=== PATIENT | female | born 2000 | race Caucasian/White ===

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

== ENCOUNTER 2020-09-18 15:00 | Outpatient (RCR) | payer BC | END 2020-10-01 | disposition home or self-care (01) | LOC: WSC | DX: M54.9 Dorsalgia, unspecified (principal); G89.29 Other chronic pain ==

== ENCOUNTER 2020-10-11 14:00 | Outpatient (RCR) | payer BC | END 2020-10-15 15:32 | disposition home or self-care (01) | LOC: WSPT 14:00 | DX: M54.5 Low back pain (principal); G89.29 Other chronic pain ==